=== PATIENT | female | born 1995 | race Caucasian/White ===

== ENCOUNTER 2020-12-27 01:59 | Day surgery (SDC) | payer OTHER, SELFPAY ==
[2020-12-20 14:21] VITALS: BMI 38.2
--- NOTE | 2020-12-20 14:47 | PC.NURSE ---
Report to the Outpatient Waiting Room, entrance under the green pavilion located off [facility], at time 0930 on date 12/27/20. OR Time: 1130 - You and your visitor will be asked a series of questions to screen for COVID 19 for your protection. - A mask is required within the hospital. - Only one visitor is allowed at this time. Patient visitors will be guided where to wait when not with patient. Preoperative COVID Testing Requirements: No COVID Test needed if: (proof is required; if not received patient will have Rapid Test prior to entry) - Patient has received COVID Vaccine at least 14 days prior to procedure date or - Patient has positive COVID test result within last 90 days of surgery date. COVID Test needed if above criteria is not met If not COVID vaccinated a COVID test must be conducted within 72 hours of surgery and patient is asked to isolate self from time of testing until procedure. You will go to the [facility] for your COVID testing. The [facility] is located at the corner of [address] [facility]. You will only be called if COVID results are positive and your surgeon may reschedule your elective surgery date. Patients may have clear liquids (water, carbonated beverages, clear teas, apple juice) until 3 hours prior to surgery with a maximum of 20 ounces. - No food from midnight until time of surgery - Infants may have breast milk until 4 hours before surgery, infant formula 6 hours prior to surgery. - Children will be allowed to drink immediately following surgery. If applicable, please bring a bottle or sippy cup to assist with drinking. Juice, water, soda, and popsicles are readily available. For infants on formula, please bring formula the day of surgery. Pacifiers are allowed. Take the following medications with a SIP of water the morning of surgery: ACYCLOVIR (IF NOT COMPLETED PRIOR TO SURGERY) Medications to discontinue per physician: VITAMINS/SUPPLEMENTS Date to take last dose: 3 DAYS PRE-OP Please no make-up, nail ethiopian, hairspray, perfume, deodorant, or body powder the day of surgery. No jewelry (including any body piercings) or valuables the day of surgery, leave them at home. Please take a shower or bath the night before, or the morning of, surgery with an antibacterial soap. Wear comfortable, loose fitting clothing. Children are encouraged to wear pajamas. - Jewelry must be removed prior to entering the operating room. Rings and piercings that are not removed may be cut off. - The hospital will not accept responsibility for valuables. - Please leave all valuables, including medications, at home the day of surgery. If you are going home after surgery, a licensed cdl b driver must drive you home. - NO public transportation without another adult. - We recommend that an adult stay with you for 24 hours following discharge. - We also recommend that you do not drive, make important decision, drink alcoholic beverages, or take any drugs that were not prescribed by your health care provider for at least 24 hours after your discharge time. For Pediatric surgeries, we recommend two adults accompany the child home (only one inside the building at this time). Follow any additional instructions given to you from your surgeon. Telephone instructions given to RASHMI AVILEZ and asked if any additional questions and then verbalized understanding. Patient advised to call surgeon office or pre surgery nurse liaison [phone] if any additional questions.
[2020-12-27] VITALS (11 sets, daily range): BP systolic 106–148; BP diastolic 48–79; PULSE 75–124; RESP 12–20; TEMP 36.8; O2SAT 94–100; BMI 38.1
[2020-12-27] MEDS: LACTATED RINGERS 1,000 ML 30 ML IV CONT ×2 (08:39→12:53)
[2020-12-27] MEDS: TRANEXAMIC ACID 1,000MG/ISO100 1,000 MG/100 ML BAG 200 MG IVPB (08:39)
--- NOTE | 2020-12-27 08:41 | WPDANESEPPF ---
Anes - Initial Pre Proc Eval Procedure: Operation Date: 12/27/20 10:00 Proposed Procedures p Bilateral Breast Reduction - Jean Donnelly MD Date/Time: 12/27/20 08:41 Surgeon: Jean Donnelly MD Pre Op Diagnosis: Macromastia Patient Data Age: 25 Gender: F Height: 1.65 m Weight: 104 kg Allergies Allergy/AdvReac Type Severity Reaction Status Date / Time No Known Allergies Allergy Unknown Verified 12/27/20 08:08 Home Medications Medication Instructions Recorded Confirmed Type acetaminophen 300 mg-codeine 30 mg 1 tablet PO Q6H PRN #15 tablet 12/07/20 12/20/20 Rx tablet acyclovir 200 mg PO TID 12/20/20 12/27/20 History loratadine [Claritin] 10 mg PO DAILY 12/20/20 12/27/20 History multivitamin 1 tablet PO DAILY 12/20/20 12/27/20 History semaglutide [Ozempic] 1 mg SUBCUT WEEKLY 12/20/20 12/27/20 History Laboratory Tests 12/27/20 08:22 Cotinine Pending Patient hx anesthesia problems: none Family hx anesthesia problems: none Results Review: All pre-operative results and documents have been reviewed as part of the pre-operative evaluation. [facility] Past Medical History Medical History History of lump of right breast 2012 Surgical History Surgical History H/O sinus surgery 2013 History of tonsillectomy 200 History of wisdom tooth extraction 2014 Family History Family History Father Diabetes mellitus Social History Social History Smoking status: Never smoker Alcohol intake: current Alcohol use details: 4/MONTH Substance use: current Substance use type: marijuana Other substance usage details: CBD WITH THC Last use: 11/29/20 Living arrangements: with family Spiritual care concerns: No Anes - Eval Final PreProcedure Day of Procedure 12/27/20 08:41 Patient weight: obese Heart: regular rate and rhythm Lungs: clear to auscultation Airway: Mallampati scale class II Neurological: alert and oriented Last oral intake: >/= 8 hours ASA classification: III Emergent: no Anesthetic plan: proceed Anesthesia type and monitoring: general ETT and standard monitoring Results Review: All pre-operative results and documents have been reviewed as part of the pre-operative evaluation. Informed Consent: The patient's anesthetic plan and its attendant risks and benefits were discussed with the patient/family/POA. Questions were solicited and answers provided to the satisfaction of the patient/family/POA.
[2020-12-27 08:44] LABS: Urine Cotinine NEGATIVE
--- NOTE | 2020-12-27 08:51 | SUR.PREOP ---
500ML IVF BOLUS INFUSING PER ORDER
--- NOTE | 2020-12-27 09:20 | WPDHPUPDATE1 ---
History and Physical Update Update Date/Time: 12/27/20 09:20 History and Physical has been reviewed, including an updated exam of the patient. There are NO changes in the patient's condition. Risks, benefits, and alternatives have been discussed and questions answered. Patient agrees to proceed with procedure.
--- NOTE | 2020-12-27 09:46 | SUR.PREOP ---
RN IN ROOM WHILE DR WILHELM MARKED PT. SIG OTHER IN ROOM ALSO.
[2020-12-27] MEDS: ceFAZolin 2 GM/D5W 50 ML 2 GM/50 ML BAG IVPB (09:52)
--- NOTE | 2020-12-27 09:54 | W.PM.PROC2 ---
Procedure Note - Detailed Date of Procedure 12/27/20 Pre-op Diagnosis Macromastia Post-op Diagnosis same Procedure Performed Bilateral Reduction Mammaplasty Surgeon Jean Donnelly MD Anesthesia general Findings Inverted T Free nipple graft Tissue removed: Right - 1690 grams Left - 1940 grams Description of Procedure She is here today for bilateral breast reduction. Previously and again today the risks, benefits, alternatives were discussed in extensive detail. I wanted her to be very realistic about the risks involved as well as expectations. We discussed aftercare and what to monitor for. She understands we can never guarantee final breast size and there will always be asymmetry. I was very upfront and honest about the risks of sensation change and even nipple loss (). Made sure answered all of her questions to her satisfaction today and consent was obtained. She was marked in the preoperative holding area with their verification. The patient was taken to the operating room placed supine on the operating table. Anesthesia was provided by anesthesiology. She was prepped and draped in a standard sterile fashion. A surgical time-out was taken. Stab incisions were made and I tumessed with a tumescent solution. I marked out the nipple-areolar complex at 42 mm. This was excised and kept in moist gauze. I then removed the inferior portion of the breast as well as the central keel to get shape based on preoperative planning. At this point copiously irrigated with saline solution and verified a strict hemostasis. I reapproximated the pillars using a 2-0 PDS. I tailor tacked the breast into place with marie. She was placed in a sitting position. I verified the nipple-areolar complex position based on preoperative markings, intraoperative measurements, and observation which were in full agreement. This nipple-areolar complex was marked at 42 mm in size. I defatted the NAC and sutured into place with 5-0 Chromic. I closed IMF deep with 1 strattafix. I closed the vertical incision with 3-0 Monocryl in the IMF with 3-0 stratafix. Then everything was closed using a running subcuticular 4-0 Monocryl followed by Steri-Strips. A tie over bolster was created for NAC with Xeroform and wet cotton, sutured into place with 3-0 Nylon. A dressing was placed followed by surgical bra. Patient was awoke and taken to PACU without difficulty. All instrument sponge counts were correct at the end of the case. Estimated Blood Loss 50 Drains No Packing No Pathology yes (Bilateral breast tissue) Complications No immediate complications Condition stable Disposition PACU
[2020-12-27] MEDS: LACTATED RINGERS IRRIG 1,000 ML, LIDOCAINE HCL 1% LOCAL INJ 50 ML, EPINEPHrine HCL INJ ... INFILTRATE (10:30)
[2020-12-27] MEDS: diphenhydrAMINE HCl INJ 50 MG/ML VIAL 25 MG IV PUSH (13:36)
[2020-12-27] MEDS: ACETAMINOPHEN 500 MG TABLET 1000 MG PO (14:13)
== END 2020-12-27 15:18 | disposition home or self-care (01) ==
PROVIDERS: Visit Provider Surgery Plastic and Reconstructive Surgery
PROC: 0HBV0ZZ Excision of Bilateral Breast, Open Approach (ICD-10-PCS; CPT 19318; principal; 2020-12-27 10:00)
DX: N62 Hypertrophy of breast (principal); N60.32 Fibrosclerosis of left breast; N60.31 Fibrosclerosis of right breast; N60.81 Other benign mammary dysplasias of right breast; N60.41 Mammary duct ectasia of right breast; G89.29 Other chronic pain; M25.511 Pain in right shoulder; M25.512 Pain in left shoulder; L98.9 Disorder of the skin and subcutaneous tissue, unspecified; N64.4 Mastodynia; F12.90 Cannabis use, unspecified, uncomplicated; E66.9 Obesity, unspecified; Z68.38 Body mass index [BMI] 38.0-38.9, adult; M54.9 Dorsalgia, unspecified
CPT/HCPCS: 19318; 80307; 88305; A9270; J0171; J0690; J1100; J1170; J1200; J2250; J2405; J2704; J2710; J3010; J7120

== ENCOUNTER 2022-04-05 08:00 | Outpatient (NON) | payer BC, SELFPAY | END 2022-04-05 08:01 | disposition home or self-care (01) | LOC: ANHLAB 04-06 12:28 | PROVIDERS: Visit Provider Nurse Practitioner | DX: N61.1 Abscess of the breast and nipple (principal); N60.42 Mammary duct ectasia of left breast; N60.41 Mammary duct ectasia of right breast | CPT/HCPCS: 88304 ==

== ENCOUNTER 2022-04-30 11:06 | Outpatient (CLI) | payer BC, SELFPAY ==
[2022-05-04 04:53] LABS: Progesterone 0.6 ng/mL (***)
== END 2022-04-30 11:07 | disposition home or self-care (01) ==
LOC: ANHLAB 11:09
PROVIDERS: Visit Provider Student in an Organized Health Care Education/Training Program
DX: N92.6 Irregular menstruation, unspecified (principal)
CPT/HCPCS: 36415; 84144

== ENCOUNTER 2022-05-02 14:39 | Outpatient (CLI) | payer BC, SELFPAY ==
[2022-05-02 15:50] LABS: Beta HCG Quantitative < 2.39 mIU/ML
== END 2022-05-02 14:40 | disposition home or self-care (01) ==
LOC: ANHLAB 14:42
PROVIDERS: Visit Provider Student in an Organized Health Care Education/Training Program
DX: N91.2 Amenorrhea, unspecified (principal)
CPT/HCPCS: 36415; 84702

== ENCOUNTER → 2022-07-03 10:55 | Outpatient (CLI) | payer BC, SELFPAY ==
--- NOTE | ~2022-07-03 | US_ITS ---
. EXAMINATION: US pelvic complete w TV DATE: 07/03/2022 11:29 INDICATION: Pelvic and perineal pain. TECHNIQUE: Multiple transabdominal and transvaginal sonographic images of the pelvis were obtained. COMPARISON: CT abdomen and pelvis 10/19/2012 FINDINGS: TRANSABDOMINAL ULTRASOUND: The uterus measures 5.9 x 3.9 x 5.2 cm. There is no free fluid in the pelvis. TRANSVAGINAL ULTRASOUND: The endometrial complex measures 10 mm in thickness. The right ovary measures 3.4 x 3.2 x 2.4 cm. The left ovary measures 3.8 x 2.7 x 3.7 cm. There is normal vascular flow in the ovaries. IMPRESSION: 1. Normal pelvis. Reviewed, dictated and finalized at location A. IMPRESSION: 1. Normal pelvis.
== END ==
PROVIDERS: Visit Provider Obstetrics & Gynecology
DX: R10.2 Pelvic and perineal pain (principal)
CPT/HCPCS: 76830; 76856

== ENCOUNTER 2022-07-30 10:06 | Outpatient (CLI) | payer BC, SELFPAY | END 2022-07-30 10:07 | disposition home or self-care (01) | LOC: ANHLAB 10:07 | PROVIDERS: Visit Provider Obstetrics & Gynecology | DX: E28.2 Polycystic ovarian syndrome (principal) | CPT/HCPCS: 36415; 84144 ==